=== PATIENT | male | born 1965 | race Two or more races ===

== ENCOUNTER 2018-06-19 11:07 | Outpatient (CLI) | payer OTHER ==
[~2018-06-19 11:07] MED LIST: FINASTERIDE5 MG; HYDROCHLOROTH12.5 M1; NORVASC5 MG; TAMS0.4C; TOPROL XL25 M1
== END 2018-06-19 12:07 | disposition home or self-care (01) ==
LOC: SONOGRAMA 11:07
DX: N20.0 Calculus of kidney (principal); N30.00 Acute cystitis without hematuria; N40.1 Benign prostatic hyperplasia with lower urinary tract symptoms; I86.1 Scrotal varices

== ENCOUNTER → 2018-06-25 09:01 | Outpatient (CLI) | payer OTHER | END | disposition home or self-care (01) | LOC: LAB 09:01 | DX: E80.6 Other disorders of bilirubin metabolism (principal) ==

== ENCOUNTER → 2018-06-28 07:20 | Outpatient (CLI) | payer OTHER | END | disposition home or self-care (01) | LOC: LAB 07:20 | DX: N30.00 Acute cystitis without hematuria (principal) ==

== ENCOUNTER 2018-08-13 07:03 | Outpatient (CLI) | payer OTHER | END 2018-08-13 07:09 | disposition home or self-care (01) | LOC: LAB 07:03 | DX: N20.0 Calculus of kidney (principal); N30.00 Acute cystitis without hematuria; N40.1 Benign prostatic hyperplasia with lower urinary tract symptoms; R97.20 Elevated prostate specific antigen [PSA] ==

== ENCOUNTER 2018-09-13 11:40 | Outpatient (CLI) | payer OTHER | END 2018-09-13 11:44 | disposition home or self-care (01) | LOC: LAB 11:40 | DX: R97.20 Elevated prostate specific antigen [PSA] (principal) ==

== ENCOUNTER 2019-07-08 10:13 | Outpatient (CLI) | payer OTHER | END 2019-07-08 12:00 | disposition home or self-care (01) | LOC: LAB 10:13 | DX: R97.20 Elevated prostate specific antigen [PSA] (principal); N20.0 Calculus of kidney; N30.00 Acute cystitis without hematuria; N40.1 Benign prostatic hyperplasia with lower urinary tract symptoms ==

== ENCOUNTER 2019-07-10 07:05 | Outpatient (CLI) | payer OTHER | END 2019-07-10 07:14 | disposition home or self-care (01) | LOC: RAD 07:05 → MAMO-SONO 07:15 | DX: N20.0 Calculus of kidney (principal); N30.00 Acute cystitis without hematuria; N40.1 Benign prostatic hyperplasia with lower urinary tract symptoms; M25.561 Pain in right knee ==

== ENCOUNTER 2019-10-17 07:24 | Outpatient (CLI) | payer OTHER | END 2019-10-17 15:37 | disposition home or self-care (01) | LOC: LAB 07:24 | DX: I10 Essential (primary) hypertension (principal); E03.8 Other specified hypothyroidism; D24.9 Benign neoplasm of unspecified breast; E11.9 Type 2 diabetes mellitus without complications; E78.00 Pure hypercholesterolemia, unspecified ==

== ENCOUNTER → 2019-12-26 07:05 | Outpatient (CLI) | payer OTHER | END | disposition home or self-care (01) | LOC: LAB 07:05 | DX: N40.0 Benign prostatic hyperplasia without lower urinary tract symptoms (principal) ==

== ENCOUNTER 2019-12-27 16:08 | Emergency (ER) | payer OTHER ==
[~2019-12-27] VITALS: Ht 152.4 cm; Wt 114.3 kg
== END 2019-12-27 17:17 | disposition home or self-care (01) ==
LOC: ER 16:08
DX: N21.1 Calculus in urethra (principal); R10.31 Right lower quadrant pain; R11.0 Nausea

== ENCOUNTER 2020-01-13 07:11 | Outpatient (CLI) | payer OTHER | END 2020-01-17 14:19 | disposition home or self-care (01) | LOC: SONOGRAMA 07:11 → MAMO-SONO 07:15 → SONOGRAMA 01-17 14:19 | DX: N20.0 Calculus of kidney (principal); N30.00 Acute cystitis without hematuria; N40.1 Benign prostatic hyperplasia with lower urinary tract symptoms ==

== ENCOUNTER 2020-11-30 13:45 | Outpatient (CLI) | payer OTHER | END 2020-11-30 13:46 | disposition home or self-care (01) | LOC: PPH VACUNA 13:45 | DX: Z23 Encounter for immunization (principal) ==

== ENCOUNTER 2021-01-15 08:00 | Outpatient (CLI) | payer OTHER | END 2021-01-15 08:06 | disposition home or self-care (01) | LOC: LAB 08:00 | PROVIDERS: ATTEND Urology | DX: N40.1 Benign prostatic hyperplasia with lower urinary tract symptoms (principal); R97.20 Elevated prostate specific antigen [PSA]; N30.00 Acute cystitis without hematuria; I10 Essential (primary) hypertension; E78.00 Pure hypercholesterolemia, unspecified; E11.9 Type 2 diabetes mellitus without complications; E03.8 Other specified hypothyroidism; D64.89 Other specified anemias ==

== ENCOUNTER 2021-06-18 09:27 | Outpatient (CLI) | payer OTHER | END 2021-06-18 09:30 | disposition home or self-care (01) | LOC: RAD 09:27 | DX: M25.572 Pain in left ankle and joints of left foot (principal); R22.42 Localized swelling, mass and lump, left lower limb ==

== ENCOUNTER → 2021-08-13 | Outpatient (CLI) | payer OTHER | END | disposition home or self-care (01) | LOC: PPH VACUNA 09:00 | PROVIDERS: ATTEND Emergency Medicine Pediatric Emergency Medicine | DX: Z23 Encounter for immunization (principal) ==

== ENCOUNTER 2021-09-18 09:29 | Outpatient (CLI) | payer OTHER | END 2021-09-18 09:36 | disposition home or self-care (01) | LOC: LAB 09:29 | PROVIDERS: ATTEND Emergency Medicine Pediatric Emergency Medicine | DX: D68.8 Other specified coagulation defects (principal) ==

== ENCOUNTER 2023-02-24 08:28 | Outpatient (CLI) | payer OTHER | END 2023-02-24 08:37 | disposition home or self-care (01) | LOC: SONOGRAMA 08:28 | PROVIDERS: ATTEND Physical Medicine & Rehabilitation Sports Medicine | DX: M25.511 Pain in right shoulder (principal); M75.111 Incomplete rotator cuff tear or rupture of right shoulder, not specified as traumatic; M75.51 Bursitis of right shoulder ==

== ENCOUNTER 2025-07-28 09:21 | Outpatient (CLI) | payer OTHER | END 2025-07-28 09:31 | disposition home or self-care (01) | LOC: SONOGRAMA 09:21 | PROVIDERS: ATTEND Specialist | DX: L72.0 Epidermal cyst (principal) ==

== ENCOUNTER 2025-08-06 10:49 | Outpatient (CLI) | payer OTHER | END 2025-08-06 10:51 | disposition home or self-care (01) | LOC: SONOGRAMA 10:49 | PROVIDERS: ATTEND Urology | DX: N40.1 Benign prostatic hyperplasia with lower urinary tract symptoms (principal); R33.9 Retention of urine, unspecified ==

== ENCOUNTER 2025-08-14 07:22 | Outpatient (CLI) | payer OTHER | END 2025-08-14 07:24 | disposition home or self-care (01) | LOC: RAD 07:22 | PROVIDERS: ATTEND Specialist | DX: L72.0 Epidermal cyst (principal) ==